=== PATIENT | male | born 1995 | race Caucasian/White ===

== ENCOUNTER → 2017-12-12 | Outpatient (CLI) | payer OTHER ==
[2017-12-12 13:34] LABS: BASO % 0.7 % (0.0-1.0); EOS % 0.5 % (0.0-3.0); HEMATOCRIT 42.4 % (42.0-52.0); HEMOGLOBIN 14.4 g/dl (13.5-17.5); IMMATURE GRANULOCYTE % 0.2 % (0-3.0); LYMPH # 1.6 10^3/uL (1.5-6.5); LYMPH % 27.3 % (24.0-44.0); MEAN CORPUSCULAR HEMOGLOBIN 31.1 pg (27.0-33.0); MEAN CORPUSCULAR VOLUME 91.6 fl (80.0-96.0); MONO # 0.6 10^3/uL (0.0-0.8); MONO % 10.1 % (0.0-5.0); NEUTROPHILS # 3.5 10^3/uL (1.8-7.7); NEUTROPHILS % 61.2 % (36.0-66.0); PLATELET COUNT, AUTOMATED 229 10^3/uL (150-450); RED BLOOD COUNT 4.63 10^6/uL (4.30-6.10); RED CELL DISTRIBUTION WIDTH 11.7 % (11.5-14.5); WHITE BLOOD COUNT 5.7 10^3/uL (4.0-10.0)
[2017-12-12 14:16] LABS: ALBUMIN 4.4 GM/DL (3.2-5.2); ALBUMIN/GLOBULIN RATIO 1.52 (1.00-1.93); ALKALINE PHOSPHATASE 53 U/L (45-117); ALT/SGPT 34 U/L (12-78); ANION GAP 9 MEQ/L (8-16); AST/SGOT 25 U/L (7-37); BILIRUBIN,TOTAL 0.5 MG/DL (0.2-1.0); BLOOD UREA NITROGEN 13 MG/DL (7-18); CALCIUM LEVEL 9.4 MG/DL (8.5-10.1); CARBON DIOXIDE LEVEL 27 MEQ/L (21-32); CHLORIDE LEVEL 106 MEQ/L (98-107); CREATININE FOR GFR 0.76 MG/DL (0.70-1.30); GLUCOSE, FASTING 85 MG/DL (70-100); POTASSIUM SERUM 4.7 MEQ/L (3.5-5.1); SODIUM LEVEL 142 MEQ/L (136-145); THYROID STIMULATING HORMONE 0.837 uIU/ML (0.463-3.98); TOTAL PROTEIN 7.3 GM/DL (6.4-8.2)
[2017-12-13 13:43] LABS: TISSUE TRANSGLUTAMINASE IgA <2 U/mL (0-3)
== END ==
LOC: M LAB 12:04
DX: Z15.89 Genetic susceptibility to other disease (principal)
CPT/HCPCS: 84443

== ENCOUNTER → 2017-12-13 | Outpatient (REF) | payer OTHER | LOC: M LAB REF 13:43 | DX: Z15.89 Genetic susceptibility to other disease (principal) ==

== ENCOUNTER → 2017-12-18 | Outpatient (CLI) | payer OTHER ==
[~2017-12-18] MED LIST: GLUCAGON FOR INJ 1 MG VIAL (J1610) As Ordered; ISOVUE-370 76% 100ML VIAL (Q9967) As Ordered; VoLumen 0.1% SUSPENSION 450ML BOTTLE As Ordered
== END ==
LOC: M RAD 08:14
DX: Z15.89 Genetic susceptibility to other disease (principal); Z90.49 Acquired absence of other specified parts of digestive tract
CPT/HCPCS: Q9967

== ENCOUNTER 2018-01-30 11:37 | Day surgery (SDC) | payer OTHER ==
[2018-01-30] MEDS: NS 1,000 ML IV (11:45)
[2018-01-30] MEDS ORDERED: PROPOFOL 200 MG/20 ML VIAL As Ordered ×3 (13:12→13:51)
[2018-01-30] MEDS ORDERED: LIDOCAINE 2% INJ 100 MG/5 ML SDV (FOR ANES.) As Ordered (13:13)
== END 2018-01-30 15:10 | disposition home or self-care (01) ==
LOC: M OPP 11:37
DX: Z12.11 Encounter for screening for malignant neoplasm of colon (principal); D12.3 Benign neoplasm of transverse colon; D12.0 Benign neoplasm of cecum; D12.2 Benign neoplasm of ascending colon; K64.8 Other hemorrhoids; K31.7 Polyp of stomach and duodenum; Z80.0 Family history of malignant neoplasm of digestive organs; Z83.71 Family history of colonic polyps
CPT/HCPCS: 45385

== ENCOUNTER → 2019-02-21 | Outpatient (CLI) | payer SELFPAY ==
[~2019-02-21] MED LIST changes: +CELE1CAP7 PO; -GLUCAGON FOR INJ 1 MG VIAL (J1610) As Ordered; -ISOVUE-370 76% 100ML VIAL (Q9967) As Ordered; +OMEP20CA4 PO; -VoLumen 0.1% SUSPENSION 450ML BOTTLE As Ordered
--- NOTE | 2019-02-22 09:23 | REP ---
PA LATERAL CHEST: 02/21/2019. CLINICAL HISTORY: Cough. FINDINGS: No prior studies. Lungs are well inflated and without infiltrate, effusion, atelectasis, or mass. The heart, mediastinal and hilar contours are normal. The aorta and airway are intact. Bony thorax unremarkable. IMPRESSION: 1. No acute cardiopulmonary change. Electronically Signed by Farhad Huber MD 02/22/2019 10:16 A
== END ==
LOC: M LRY 17:54
PROVIDERS: ATTEND Nurse Practitioner Family
DX: R05 Cough (principal)

== ENCOUNTER 2019-03-30 19:57 | Emergency (ER) | payer OTHER, SELFPAY ==
[~2019-03-30] VITALS: Ht 180.3 cm; Wt 75.0 kg
[~2019-03-30 19:57] MED LIST changes: +OMEP1CAP73 PO; -OMEP20CA4 PO
[2019-03-30 20:32] LABS: BASO % 0.2 % (0.0-1.0); EOS % 0.5 % (0.0-3.0); HEMATOCRIT 46.5 % (42.0-52.0); HEMOGLOBIN 16.3 g/dl (13.5-17.5); LYMPH # 0.3 10^3/uL (1.5-5.0); LYMPH % 5.6 % (24.0-44.0); MEAN CORPUSCULAR HEMOGLOBIN 30.8 pg (27.0-33.0); MEAN CORPUSCULAR HGB CONC 35.1 g/dl (32.0-36.5); MEAN CORPUSCULAR VOLUME 87.9 fl (80.0-96.0); MONO # 0.5 10^3/uL (0.0-0.8); MONO % 7.8 % (0.0-5.0); NEUTROPHILS % 85.6 % (36.0-66.0); PLATELET COUNT, AUTOMATED 246 10^3/uL (150-450); RED BLOOD COUNT 5.29 10^6/uL (4.30-6.10); WHITE BLOOD COUNT 5.9 10^3/uL (4.0-10.0)
[2019-03-30 20:59] LABS: ALBUMIN 4.5 GM/DL (3.2-5.2); ALT/SGPT 116 U/L (12-78); BILIRUBIN,DIRECT 0.3 MG/DL (0.0-0.2); BILIRUBIN,TOTAL 0.9 MG/DL (0.2-1.0); BLOOD UREA NITROGEN 18 MG/DL (7-18); CALCIUM LEVEL 9.5 MG/DL (8.5-10.1); CARBON DIOXIDE LEVEL 23 MEQ/L (21-32); CHLORIDE LEVEL 107 MEQ/L (98-107); GLOMERULAR FILTRATION RATE > 60.0 (>60); GLUCOSE, FASTING 111 MG/DL (70-100); LIPASE 89 U/L (73-393); POTASSIUM SERUM 3.9 MEQ/L (3.5-5.1); SODIUM LEVEL 139 MEQ/L (136-145); TOTAL PROTEIN 7.8 GM/DL (6.4-8.2)
[2019-03-30] MEDS ORDERED: ONDANSETRON 4MG/2ML VIAL (J2405) IV ONE (21:45)
[2019-03-30] MEDS ORDERED: NS 1,000 ML IV ONE (21:45)
[2019-03-30 22:47] VITALS: BP 108/69
== END 2019-03-30 23:21 | disposition home or self-care (01) ==
LOC: M ED 19:57
DX: R11.2 Nausea with vomiting, unspecified (principal); R10.9 Unspecified abdominal pain; Z87.19 Personal history of other diseases of the digestive system; K21.9 Gastro-esophageal reflux disease without esophagitis; F17.290 Nicotine dependence, other tobacco product, uncomplicated
CPT/HCPCS: 36415; 80047; 80048; 80076; 83690; 85025; 87507; 96361; 96374; 99284; J2405

== ENCOUNTER → 2019-07-27 | Outpatient (CLI) | payer BC ==
--- NOTE | 2019-07-27 19:14 | REPPI ---
Clinical: Axillary adenopathy . Comparison: 02/21/2019 . Technique: PA and lateral. Findings: The mediastinum and cardiac silhouette are normal. The lung graham are clear and without acute consolidation, effusion, or pneumothorax. The skeletal structures are intact and normal. Impression: 1. No acute cardiopulmonary process. No obvious mediastinal or hilar adenopathy by radiographic evaluation. Electronically Signed by Justin Muro MD 07/27/2019 07:05 P
== END ==
LOC: M PLAIMG 10:10
PROVIDERS: ATTEND Physician Assistant Medical
DX: R59.0 Localized enlarged lymph nodes (principal)

== ENCOUNTER → 2019-07-27 | Outpatient (CLI) | payer BC | LOC: M WHC 10:24 | PROVIDERS: ATTEND Physician Assistant Medical | DX: R59.0 Localized enlarged lymph nodes (principal) ==

== ENCOUNTER → 2019-07-27 | Outpatient (REF) | payer BC ==
[2019-07-27 13:42] LABS: EOS # 0.1 10^3/uL (0.0-0.5); EOS % 1.6 % (0.0-3.0); LYMPH # 1.5 10^3/uL (1.5-5.0); MEAN CORPUSCULAR HEMOGLOBIN 31.4 pg (27.0-33.0); MEAN CORPUSCULAR HGB CONC 34.9 g/dl (32.0-36.5); MEAN CORPUSCULAR VOLUME 90.1 fl (80.0-96.0); MONO # 0.4 10^3/uL (0.0-0.8); MONO % 10.7 % (0.0-5.0); NEUTROPHILS # 1.8 10^3/uL (1.5-8.5); NEUTROPHILS % 47.4 % (36.0-66.0); PLATELET COUNT, AUTOMATED 261 10^3/uL (150-450); RED BLOOD COUNT 4.77 10^6/uL (4.30-6.10); WHITE BLOOD COUNT 3.8 10^3/uL (4.0-10.0)
[2019-07-27 13:51] LABS: ALBUMIN 4.4 GM/DL (3.2-5.2); ALT/SGPT 127 U/L (12-78); BILIRUBIN,TOTAL 0.6 MG/DL (0.2-1.0); BLOOD UREA NITROGEN 6 MG/DL (7-18); C REACTIVE PROTEIN QUANTITATIV < 0.30 MG/DL (0.00-0.30); CALCIUM LEVEL 9.5 MG/DL (8.5-10.1); CARBON DIOXIDE LEVEL 31 MEQ/L (21-32); CHLORIDE LEVEL 107 MEQ/L (98-107); CHOLESTEROL LEVEL 170 MG/DL (<200); CHOLESTEROL RISK RATIO 3.953 (<5); CREATININE FOR GFR 0.84 MG/DL (0.70-1.30); GLOMERULAR FILTRATION RATE > 60.0 (>60); GLUCOSE, FASTING 74 MG/DL (70-100); HDL CHOLESTEROL 43 MG/DL (>40); LDL CHOLESTEROL 82 MG/DL (<100); NON-HDL-C 127 MG/DL; POTASSIUM SERUM 4.1 MEQ/L (3.5-5.1); SODIUM LEVEL 142 MEQ/L (136-145); TOTAL PROTEIN 7.5 GM/DL (6.4-8.2); TRIGLYCERIDES LEVEL 227 MG/DL (<150)
== END ==
LOC: M SFHCPLAZ 10:00
PROVIDERS: ATTEND Physician Assistant Medical
DX: K64.8 Other hemorrhoids (principal); Z13.220 Encounter for screening for lipoid disorders; R59.0 Localized enlarged lymph nodes

== ENCOUNTER → 2019-08-21 | Outpatient (CLI) | payer BC ==
--- NOTE | 2019-08-21 07:40 | REP ---
Clinical: History of adenopathy. Technique: Axial noncontrast images from the thoracic inlet to the upper abdomen with coronal and sagittal re-formations. Findings: The bilateral lung graham are well-aerated relatively symmetric and clear. No consolidation, nodule or mass lesion. No pleural effusion. No pneumothorax. Tracheobronchial tree is patent. No axillary, hilar, or mediastinal adenopathy is appreciated. Thoracic aorta, pulmonary vasculature and heart/pericardium appear normal. Surrounding musculoskeletal structures are intact without acute osseous abnormality. Limited upper abdomen demonstrates normal bilateral adrenal glands and evidence for prior cholecystectomy. Impression: Normal noncontrast chest CT. No acute mediastinal or pleuroparenchymal process. No adenopathy appreciated. Electronically Signed by Justin Muro MD 08/21/2019 07:32 A
--- NOTE | 2019-08-21 10:30 | REP ---
REASON FOR EXAM: Lymphadenopathy in the cervical region. Ultrasonographic evaluation of the neck soft tissues, particularly over a palpable area shows no cystic or solid masses. There is a normal-sized lymph node seen in the left neck having a short-axis dimension of 1 cm. IMPRESSION: No ultrasonographic abnormalities. Consider the gold standard of neck imaging as followup which is contrast-enhanced CT if clinically relevant. Electronically Signed by Storm Espitia DO 08/21/2019 11:15 A
--- NOTE | 2019-08-21 12:15 | REP ---
REASON: Elevated LFTs. Patient is status post cholecystectomy. Ultrasonographic evaluation of the liver shows no abnormalities. There is no intrahepatic or extrahepatic ductal dilatation. The common bile duct measures between 3 and 4 mm. The imaged portion of pancreas and right kidney are within normal limits. There is no free fluid. IMPRESSION: Unremarkable exam. Electronically Signed by Storm Espitia DO 08/21/2019 05:01 P
== END ==
LOC: M RAD 07:06
PROVIDERS: ATTEND Physician Assistant Medical
DX: R79.89 Other specified abnormal findings of blood chemistry (principal); R59.0 Localized enlarged lymph nodes

== ENCOUNTER → 2019-10-06 | Outpatient (CLI) | payer BC ==
[~2019-10-06] MED LIST changes: +ISOVUE-370 76% 100ML VIAL As Ordered ONE
--- NOTE | 2019-10-06 14:53 | REPVR ---
PROCEDURE INFORMATION: Exam: CT Neck With Contrast Exam date and time: 10/06/2019 2:28 PM Age: 24 years old Clinical indication: Other: Lymphadenopathy of left cerivcal region TECHNIQUE: Imaging protocol: Computed tomography images of the neck with intravenous contrast. Radiation optimization: All CT scans at this facility use at least one of these dose optimization techniques: automated exposure control; mA and/or kV adjustment per patient size (includes targeted exams where dose is matched to clinical indication); or iterative reconstruction. Contrast material: ISOVUE 370; Contrast volume: 75 ml; Contrast route: INTRAVENOUS (IV); COMPARISON: Thyroid, ST head+neck US 08/21/2019 7:40 AM FINDINGS: Nasopharynx: Unremarkable. Oropharynx: Unremarkable. No significant tonsillar enlargement. Hypopharynx: Unremarkable. Larynx: Unremarkable. Normal epiglottis. Retropharyngeal space: Unremarkable. Submandibular/Parotid glands: Normal. Glands are normal in size. Thyroid: The thyroid gland is normal. Lymph nodes: There are numerous prominent but non-pathologic lymph nodes in the neck. There are no nodes of pathologic dimensions. Trachea: Visualized trachea is unremarkable. Lungs: The visualized portions of the lung apices are normal. Bones/joints: Unremarkable. No acute fracture. Soft tissues: Unremarkable. No significant soft tissue swelling. IMPRESSION: No acute findings. There are no abnormally enlarged lymph nodes. Electronically signed by: Joaquim Carrion On 10/06/2019 14:53:08 PM
== END ==
LOC: M RAD 14:10
PROVIDERS: ATTEND Physician Assistant Medical
DX: R59.0 Localized enlarged lymph nodes (principal)
CPT/HCPCS: 70491; Q9967

== ENCOUNTER → 2021-02-08 | Outpatient (REF) ==
[~2021-02-08] MED LIST changes: -ISOVUE-370 76% 100ML VIAL As Ordered ONE
== END ==
LOC: M LABSMTC 10:39
PROVIDERS: ATTEND Family Medicine
DX: Z11.52 Encounter for screening for COVID-19 (principal)

== ENCOUNTER 2021-02-25 23:19 | Emergency (ER) | payer BC ==
[~2021-02-25] VITALS: Ht 180.3 cm; Wt 68.2 kg
[2021-02-26] MEDS ORDERED: ZOFR4TAB16 PO (00:02)
[2021-02-26 00:17] VITALS: BP 136/76
== END 2021-02-26 00:18 | disposition home or self-care (01) ==
LOC: M ED 23:19
DX: S09.90XA Unspecified injury of head, initial encounter (principal); S20.219A Contusion of unspecified front wall of thorax, initial encounter; Y04.8XXA Assault by other bodily force, initial encounter; Y92.9 Unspecified place or not applicable; Y93.9 Activity, unspecified; Y99.0 Civilian activity done for income or pay

== ENCOUNTER → 2021-04-05 | Outpatient (REF) ==
[~2021-04-05] MED LIST changes: +ZOFR4TAB16 PO
== END ==
LOC: M LABSMTC 12:29
PROVIDERS: ATTEND Pediatrics
DX: Z20.822 Contact with and (suspected) exposure to COVID-19 (principal)

== ENCOUNTER → 2021-04-10 | Outpatient (REF) | LOC: M LABSMTC 10:06 | PROVIDERS: ATTEND Family Medicine | DX: Z11.52 Encounter for screening for COVID-19 (principal) ==

== ENCOUNTER → 2021-11-06 | Outpatient (CLI) | payer BC | LOC: M PLAIMG 15:05 | PROVIDERS: ATTEND Physician Assistant Medical | DX: M25.561 Pain in right knee (principal) ==

== ENCOUNTER → 2024-06-17 | Outpatient (REF) | payer OTHER ==
[~2024-06-17] MED LIST changes: -CELE1CAP7 PO; +CELE1CAP99 PO
== END ==
LOC: M SMT 13:17
PROVIDERS: ATTEND Urology
DX: Z30.2 Encounter for sterilization (principal)

== ENCOUNTER → 2024-11-25 | Outpatient (CLI) | payer OTHER | LOC: M RAD 08:53 | PROVIDERS: ATTEND Physician Assistant | DX: S13.4XXD Sprain of ligaments of cervical spine, subsequent encounter (principal); M47.812 Spondylosis without myelopathy or radiculopathy, cervical region; M48.02 Spinal stenosis, cervical region ==

== ENCOUNTER → 2024-12-30 | Outpatient (CLI) | payer OTHER | LOC: M RAD 11:36 | DX: R10.A2 Flank pain, left side (principal) ==

== ENCOUNTER → 2025-01-08 | Outpatient (CLI) | payer OTHER ==
[~2025-01-08] MED LIST changes: +ISOVUE-370 76% 100 ML VIAL As Ordered ONE
== END ==
LOC: M RAD 07:45
DX: R10.A2 Flank pain, left side (principal); S22.42XD Multiple fractures of ribs, left side, subsequent encounter for fracture with routine healing
CPT/HCPCS: 74177; Q9967

== ENCOUNTER → 2025-01-14 | Outpatient (CLI) | payer OTHER ==
[~2025-01-14] MED LIST changes: -ISOVUE-370 76% 100 ML VIAL As Ordered ONE
[2025-01-14 15:48] LABS: BASO # 0.1 10^3/uL (0.0-0.2); BASO % 0.8 % (0.0-1.0); EOS # 0.0 10^3/uL (0.0-0.5); EOS % 0.3 % (0.0-3.0); LYMPH # 1.5 10^3/uL (1.5-5.0); LYMPH % 24.6 % (24.0-44.0); MONO # 0.4 10^3/uL (0.0-0.8); MONO % 6.7 % (2.0-8.0); NEUTROPHILS # 4.0 10^3/uL (1.5-8.5); NEUTROPHILS % 67.3 % (36.0-66.0); PLATELET COUNT, AUTOMATED 292 10^3/uL (150-450)
[2025-01-14 16:15] LABS: ALT/SGPT 57 U/L (7.0-40); AST/SGOT 52 U/L (<34); CALCIUM LEVEL 9.9 MG/DL (8.5-10.1); CARBON DIOXIDE LEVEL 26 MMOL/L (20-31); CHLORIDE LEVEL 103 MMOL/L (98-107); CPK CREATINE PHOSPHOKINASE 667 U/L (46-171); CREATININE FOR GFR 0.80 MG/DL (0.70-1.30); GLOMERULAR FILTRATION RATE > 90.0 (>60); IRON (FE) 90 UG/DL (65-175); POTASSIUM SERUM 4.2 MMOL/L (3.5-5.1); SODIUM LEVEL 141 MMOL/L (136-145)
== END ==
LOC: M PLALAB 14:24
PROVIDERS: ATTEND Physician Assistant Medical
DX: D50.0 Iron deficiency anemia secondary to blood loss (chronic) (principal); R10.A2 Flank pain, left side

== ENCOUNTER → 2025-02-17 | Outpatient (REF) | payer OTHER ==
[2025-02-17 18:24] LABS: BASO # 0.1 10^3/uL (0.0-0.2); BASO % 0.9 % (0.0-1.0); EOS # 0.0 10^3/uL (0.0-0.5); EOS % 0.3 % (0.0-3.0); LYMPH # 1.5 10^3/uL (1.5-5.0); LYMPH % 21.9 % (24.0-44.0); MONO # 0.4 10^3/uL (0.0-0.8); MONO % 6.1 % (2.0-8.0); NEUTROPHILS # 4.8 10^3/uL (1.5-8.5); NEUTROPHILS % 70.5 % (36.0-66.0); PLATELET COUNT, AUTOMATED 311 10^3/uL (150-450)
[2025-02-17 18:50] LABS: ALT/SGPT 60 U/L (7.0-40); AST/SGOT 49 U/L (<34); CALCIUM LEVEL 9.9 MG/DL (8.5-10.1); CARBON DIOXIDE LEVEL 25 MMOL/L (20-31); CHLORIDE LEVEL 101 MMOL/L (98-107); CREATININE FOR GFR 0.74 MG/DL (0.70-1.30); GLOMERULAR FILTRATION RATE > 90.0 (>60); POTASSIUM SERUM 3.9 MMOL/L (3.5-5.1); SODIUM LEVEL 139 MMOL/L (136-145)
== END ==
LOC: M LAB REF 18:03
PROVIDERS: ATTEND Physician Assistant
DX: R53.83 Other fatigue (principal); R42 Dizziness and giddiness